=== PATIENT | female | born 1960 | race Caucasian/White ===

== ENCOUNTER 2021-06-21 14:31 | Emergency (ER) | payer OTHER ==
[2021-06-21 15:21] LABS: HEMOGLOBIN 13.6 gm/dl (12.3-15.3); RED BLOOD COUNT 4.46 M/UL (4.00-5.10); WHITE BLOOD COUNT 10.9 K/UL (4.5-11.0)
[2021-06-21] MEDS ORDERED: OMNICEF 300 MG300 MG PO (16:42)
[2021-06-21] MEDS ORDERED: PYRIDIUM200 MG PO (16:42)
[2021-06-21] MEDS ORDERED: ZOFRAN 4 MG TAB4 MG PO (16:42)
== END 2021-06-21 17:58 | disposition home or self-care (01) ==
LOC: ER1 14:31
PROVIDERS: Physician Assistant
DX: R31.9 Hematuria, unspecified (principal); R10.9 Unspecified abdominal pain; I10 Essential (primary) hypertension; E78.5 Hyperlipidemia, unspecified; Z88.5 Allergy status to narcotic agent; Z88.1 Allergy status to other antibiotic agents
CPT/HCPCS: 80053; 81001; 85025; 87077; 87086; 87186; 96374; 96375; 99284; J0696; J1885; J2405; J7030